=== PATIENT | female | born 1960 | race Caucasian/White ===

== ENCOUNTER → 2016-09-12 | Outpatient (CLI) | payer BC ==
--- NOTE | 2016-09-12 11:12 | RADONC ---
RADIATION ONCOLOGY FOLLOWUP NOTE DATE: 09/12/2016 CHART NUMBER: [id number] DIAGNOSIS: Left breast cancer STAGE: I A, [id number]. ECOG performance status: 0. FOLLOWUP NOTE: Ms. Lemus is a very pleasant 56-year-old white female with the diagnosis of a stage I A, [id number], moderately differentiated invasive ductal carcinoma of the left breast who is presenting to us today for a routine followup visit 1 year and 6 months post completion of external beam radiation therapy. The patient presents today reporting that she is doing quite well with no complaints at this time related to her radiation therapy or disease. She has no breast or bone pain. REVIEW OF SYSTEMS: The patient's review of systems is noncontributory. Denies nausea, vomiting, fevers, chills, night sweats, diplopia, headaches, anxiety or depression, anorexia, weight loss, visual disturbances, chest pain, urinary or bowel difficulties, bone pain, or neurological problems. PHYSICAL EXAMINATION: The patient is a well-developed, well-nourished, 56-year-old female in no acute distress. HEENT exam is normocephalic, atraumatic. Extraocular movements are intact. There is no palpable cervical, supraclavicular, infraclavicular, axillary, or inguinal lymphadenopathy present. Lungs are clear to auscultation and percussion. Heart has a regular rate and rhythm. Abdomen is benign with no hepatosplenomegaly, masses, or tenderness. Breast examination reveals no masses or discharge bilaterally. Skeletal examination reveals no tenderness to pressure or percussion of the bony skeleton. Extremities reveal no clubbing, cyanosis, or edema. Neurologic exam is grossly intact, as is the remainder of the physical examination. ASSESSMENT: The patient is clinically RAMIREZ at this time and will be seen by us again in 6 months for further followup. She will also continue to be followed by her other physicians as well. cc: MD Doyrs Warren ANP *Sahra Cespedes MD *MD NANCY Martines
== END ==
LOC: M ONCR 10:09
PROVIDERS: ATTEND Radiology Radiation Oncology
DX: C50.212 Malignant neoplasm of upper-inner quadrant of left female breast (principal)

== ENCOUNTER → 2017-04-03 | Outpatient (CLI) | payer BC ==
--- NOTE | 2017-04-06 14:07 | RADONC ---
RADIATION ONCOLOGY FOLLOWUP NOTE DATE: 04/03/2017 CHART NUMBER: [id number] DIAGNOSIS: Left breast cancer. STAGE: IA, [id number]. ECOG PERFORMANCE STATUS: 0 FOLLOWUP NOTE Ms. Lemus is a very pleasant 56-year-old white female with the diagnosis of a stage IA, [id number], moderately differentiated invasive ductal carcinoma of the left breast who is presenting to us today for routine followup visit 2 years post completion of external beam radiation therapy. The patient presents today reporting that she is doing quite well with no complaints at this time related to her radiation therapy or disease. She has no breast or bone pain. REVIEW OF SYSTEMS: The patient's review of systems is noncontributory. She denies nausea, vomiting, fevers, chills, night sweats, diplopia, headaches, anxiety or depression, anorexia, weight loss, visual disturbances, chest pain, urinary or bowel difficulties, bone pain, or neurological problems. PHYSICAL EXAMINATION: The patient is a well-developed, well-nourished white female in no acute distress. HEENT exam is normocephalic, atraumatic. Extraocular movements are intact. There is no palpable cervical, supraclavicular, infraclavicular, axillary, or inguinal lymphadenopathy present. Lungs are clear to auscultation and percussion. Heart has a regular rate and rhythm. Abdomen is benign with no hepatosplenomegaly, masses, or tenderness. Breast examination reveals no masses or discharge bilaterally. Skeletal examination reveals no tenderness to pressure or percussion of the bony skeleton. Extremities reveal no clubbing, cyanosis, or edema. Neurologic exam is grossly intact, as is the remainder of the physical examination. ASSESSMENT: The patient is clinically RAMIREZ at this time and will be seen by us again in 6 months for further followup. She will also continue to be followed by her other physicians as well. cc: MD Fernanda Olmos MD [place], MD Linda Moser, ANP
== END ==
LOC: M ONCR 10:28
PROVIDERS: ATTEND Radiology Radiation Oncology
DX: C50.212 Malignant neoplasm of upper-inner quadrant of left female breast (principal)

== ENCOUNTER → 2018-10-10 | Outpatient (REF) | payer BC ==
[~2018-10-10] MED LIST: ANAS1TAB2 PO; MULT1TAB18 PO; OMEG10002 PO; OSTETAB13 PO; [UNRECOGNIZED DRUG - CODE] PO
[2018-10-21 14:24] LABS: HPV LOW VOL RFLX Negative (Negative)
== END ==
LOC: M LAB LCGH 12:09
PROVIDERS: ATTEND Physician Assistant
DX: R87.610 Atypical squamous cells of undetermined significance on cytologic smear of cervix (ASC-US) (principal); N90.9 Noninflammatory disorder of vulva and perineum, unspecified
CPT/HCPCS: 87624; G0123

== ENCOUNTER → 2019-10-25 | Outpatient (CLI) | payer BC ==
[~2019-10-25] MED LIST changes: +CALC500C16 PO; +CALC600T61 PO; +CHEL100T4 PO; +CVS1CAP2 PO; +MULTCAP PO; +OSTETAB2 PO
== END ==
LOC: M LABSMTC 10:36
PROVIDERS: ATTEND Surgery
DX: Z11.59 Encounter for screening for other viral diseases (principal)
CPT/HCPCS: C9803; U0003

== ENCOUNTER 2019-11-10 12:52 | Day surgery (SDC) | payer BC ==
[~2019-11-10] VITALS: Ht 165.1 cm; Wt 57.6 kg
[~2019-11-10 12:52] MED LIST changes: +LIDOCAINE 2% 100MG/5ML SDV (FOR ANES.) As Ordered ONE; +MIDAZOLAM INJ 2MG/2ML VIAL (J2250 PER 1MG) As Ordered ONE; +ceFAZolin 1GM VIAL (J0690 PER 500MG) As Ordered ONE; +ceFAZolin 1GM VIAL (J0690 PER 500MG) ONE; +fentaNYL 100 MCG/2 ML INJECTION (J3010) As Ordered ONE; +propofoL 200 MG/20 ML VIAL As Ordered ONE
[2019-11-10] MEDS ORDERED: BUPIVACAINE/EPIN 0.25% 30 ML VIAL ONE (13:03)
[2019-11-10] MEDS ORDERED: POLYSPORIN OPHTH OINT 3.5 GM ONE (13:03)
[2019-11-10] MEDS ORDERED: dexameTHASONE 4 MG/ML 1ML VIAL (J1100 PER 1MG) As Ordered ONE (13:23)
[2019-11-10] MEDS ORDERED: POVIDONE-IODINE 5% OPHTH PREP SOL 30ML As Ordered ONE (13:27)
[2019-11-10] MEDS ORDERED: METOCLOPRAMIDE INJ 10MG/2ML VIAL (J2765 PER 1) As Ordered ONE (13:33)
[2019-11-10] MEDS ORDERED: ONDANSETRON 4MG/2ML VIAL As Ordered ONE (13:33)
[2019-11-10] MEDS ORDERED: ePHEDrine SULFATE 25 MG/5 ML(5MG/ML) SYRINGE As Ordered ONE (13:47)
--- NOTE | 2020-01-01 12:08 | RO ---
DATE OF OPERATION: 11/10/2019 PREOPERATIVE DIAGNOSES: 1. Melanoma in situ of the chest. 2. Pigmented left eyelid lesion. POSTOPERATIVE DIAGNOSES: 1. Melanoma in situ of the chest. 2. Pigmented left eyelid lesion. PROCEDURES: 1. Wide excision of melanoma in situ biopsy site of the chest. 2. Biopsy of left eyelid lesion. SURGEON: Sreekanth Tobar M.D. CHIP SILO TENDER: ANESTHESIA: General endotracheal anesthesia. FINDINGS: The patient's previous biopsy site at the melanoma excision had contracted nicely and thus the overall size of the previous biopsy site was approximately 1 cm x 0.5 cm. A total excision site of the skin was approximately 6 cm x 1.5 cm. BRIEF PROCEDURE SUMMARY: The patient was brought to the operating room and was given general anesthesia. After adequate anesthesia and preoperative antibiotics were given, the patient was prepped and draped in the usual sterile fashion. Next, the patient had a previous melanoma in situ of the trunk right overlying the sternum. Fortunately, the previous biopsy site had contracted down and was not as large as the original specimen was, but, in any case, it was a little bit over 5-mm in width. Using measurements to measure out 5-mm circumferentially on this area and then using an elliptical incision, an approximately 6-cm long segment with a little over 1.5-cm width was able to be removed with first sharp dissection and electrocautery for hemostasis. This was dissected down to the deep subcutaneous tissue. This was removed and then brought together with 2-0 Vicryl deep layer and then 3-0 Vicryl dermal layer, 4-0 Vicryl subcuticular. Steri-Strips and a dry sterile dressing were applied. Next, the patient had a small hyperpigmented lesion on the left upper eyelid. This was 3-4 mm in size. The patient noticed that it was slightly raised in this area. Thus, after putting local in this area, the area was sharply removed with a scalpel without difficulty. Good hemostasis was achieved. Antibiotic ointment was placed on this area. The patient was awakened from her anesthesia and brought to the recovery room awake, alert, and hemodynamically stable. Sponge and needle counts were correct x2. MTDD
[2020-02-19] MEDS ORDERED: ANAS1TAB2 PO (10:57)
[2020-02-22] MEDS ORDERED: ANAS1TAB2 PO (15:27)
== END 2019-11-10 15:10 | disposition home or self-care (01) ==
LOC: M SDC 12:52
PROVIDERS: ATTEND Surgery
DX: L72.0 Epidermal cyst (principal); D03.59 Melanoma in situ of other part of trunk; Z79.899 Other long term (current) drug therapy; Z85.3 Personal history of malignant neoplasm of breast; Z92.3 Personal history of irradiation; Z88.8 Allergy status to other drugs, medicaments and biological substances
CPT/HCPCS: 11404; 11440; 88305; J0690; J1100; J2250; J2405; J2765; J3010